=== PATIENT | male | born 1965 | race Native Hawaiian/Other Pacific Islander ===

== ENCOUNTER 2019-09-18 10:26 | Inpatient (IN) | payer BC ==
[~2019-09-18] VITALS: Ht 177.8 cm; Wt 115.3 kg
[2019-09-18 10:38] VITALS: BP 138/90; TEMP 99.3
[2019-09-18 11:01] LABS: PLATELET COUNT 163 K/uL (142-355)
[2019-09-18 11:10] LABS: POTASSIUM 4.4 mmol/L (3.6-5.2)
[2019-09-18 14:32] VITALS: BP 132/78; TEMP 100.5; Ht 177.8 cm; Wt 115.3 kg
[2019-09-18 20:00] VITALS: BP 141/79; TEMP 99.5
[2019-09-19] VITALS: BP 131/79; TEMP 99.1
[2019-09-19 04:00] VITALS: BP 129/80; TEMP 99.6
[2019-09-19 06:11] LABS: PLATELET COUNT 182 K/uL (142-355)
[2019-09-19 06:24] LABS: POTASSIUM 4.1 mmol/L (3.6-5.2)
[2019-09-19 08:00] VITALS: BP 124/81; TEMP 98.6
[2019-09-20 00:20] VITALS: BP 123/70; TEMP 98.4
[2019-09-20 04:01] VITALS: BP 142/82; TEMP 97.9
[2019-09-20 08:00] VITALS: BP 119/78; TEMP 98.1
== END 2019-09-20 13:35 | disposition home or self-care (01) | DRG 194 ==
LOC: ED 10:26 → MED/SURG 13:31
PROVIDERS: Family Medicine; ADMIT Emergency Medicine
DX: J18.8 Other pneumonia, unspecified organism (principal); E87.1 Hypo-osmolality and hyponatremia; N28.9 Disorder of kidney and ureter, unspecified; E86.0 Dehydration; R51 Headache; E87.8 Other disorders of electrolyte and fluid balance, not elsewhere classified; R53.1 Weakness; R00.0 Tachycardia, unspecified
CPT/HCPCS: 36415; 80053; 81000; 82550; 83605; 83880; 84484; 85027; 87040; 87502; 87651; 87899; 93005; 94640; 94664; 94760; 96361; 96365; 96366; 96375; 99284; J0456; J0696; J1885; J2405; J2930